=== PATIENT | male | born 1995 | race Caucasian/White ===

== ENCOUNTER 2019-08-02 16:03 | Emergency (ER) | payer SELFPAY ==
[~2019-08-02] VITALS: Ht 190.5 cm; Wt 99.8 kg
--- NOTE | 2019-08-02 16:10 | NUR ---
[facility] c/p high blood pressure 1 1/2 hour [employer] 180/111, last fentanyl was 2-3 days ago per patient. Patient a/ox4, breathing even and unlabored, nos ob noted, kept comfortable in bed, attached to the awake overnight monitor.
[2019-08-02] MEDS ORDERED: NIFEdipine XL (30MG) 30 MG TAB PO STA (16:43)
[2019-08-02] MEDS ORDERED: NIFEdipine (10MG) 10 MG CAPSULE ONE (16:51)
[2019-08-02 17:10] LABS: BASOPHILS % (AUTO) 0.6 % (0.0-2.0); EOSINOPHILS % (AUTO) 0.2 % (0.0-6.0); HEMATOCRIT 44 % (39-51); HEMOGLOBIN 14.6 g/dL (13.5-17.5); LYMPHOCYTES # (AUTO) 1.3 /CMM (0.8-4.8); MEAN CORPUSCULAR HGB CONC 33 g/dl (31.0-36.0); MEAN CORPUSCULAR VOLUME 85 fL (80-96); MONOCYTES # (AUTO) 0.7 /CMM (0.1-1.30); MONOCYTES % (AUTO) 9.2 % (2.0-12.0); NEUTROPHILS # (AUTO) 5.1 /CMM (1.8-8.9); PLATELET COUNT (AUTO) 209 /CMM (150-450); RED BLOOD CELL COUNT(AUTO) 5.23 MIL/uL (4.5-6.0); WHITE BLOOD COUNT (AUTO) 7.1 K/uL (4.3-11.0)
[2019-08-02 17:21] LABS: CALCIUM, SERUM 9.3 mg/dL (8.5-10.1); CREATININE 0.9 mg/dL (0.6-1.3); POTASSIUM 3.8 mmol/L (3.5-5.1)
[2019-08-02] MEDS ORDERED: CLONIDINE HCL 0.1 MG TABLET ONE (17:52)
[2019-08-02] MEDS ORDERED: CLONIDINE HCL 0.1 MG TABLET PO ONE (18:00)
[2019-08-02] MEDS ORDERED: LABETALOL HCL IV 100MG VIAL ONE (19:18)
--- NOTE | 2019-08-02 19:26 | NUR ---
L HAND 20G IV LINE STARTED AND MEDICATED ORDERED ,
[2019-08-02] MEDS ORDERED: LABETALOL 20 MG/4 ML VIAL IV ONE ×2 (19:30→20:00)
--- NOTE | 2019-08-02 19:32 | NUR ---
NEEL PHONE NUMBER [phone].
[2019-08-02] MEDS ORDERED: hydrALAZINE HCL IV 20 MG VIAL ONE ×2 (20:22→20:52)
[2019-08-02] MEDS ORDERED: hydrALAZINE HCL IV 20 MG VIAL IV ONE ×2 (20:30→21:00)
--- NOTE | 2019-08-02 21:51 | NUR ---
BP under control. pt medically clear for D/C. IV removed. Catheter intact and site benign. Pressure and 4x4 applied to site. No bleeding noted.Patient discharged to home in stable condition. Rx and Written and verbal after care instructions given. Patient verbalizes understanding of instruction. Fernando from the detox center provided ride back to the facility.
[2019-08-02 21:52] VITALS: BP 153/85
== END 2019-08-02 21:53 | disposition home or self-care (01) ==
LOC: ER 16:10
DX: I16.0 Hypertensive urgency (principal); F11.23 Opioid dependence with withdrawal; F17.210 Nicotine dependence, cigarettes, uncomplicated; I10 Essential (primary) hypertension; Z91.19 Patient's noncompliance with other medical treatment and regimen; Z98.890 Other specified postprocedural states
CPT/HCPCS: 36415; 80048; 85025; 96374; 96375; 96376; 99285; 99406; J0360 ×2; J3490 ×3